=== PATIENT | female | born 1945 | race Caucasian/White ===

== ENCOUNTER → 2024-07-20 10:54 | Outpatient (REF) | payer MEDICARE, BC, SELFPAY | LOC: HWRAD 10:54 | PROVIDERS: ATTENDING PHYSICIAN Hospitalist; FAMILY PHYSICIAN Internal Medicine Geriatric Medicine | DX: M81.0 Age-related osteoporosis without current pathological fracture (principal) | CPT/HCPCS: 77080 ==